=== PATIENT | female | born 1925 | race Caucasian/White ===

== ENCOUNTER 2016-11-15 20:35 | Observation (INO) | payer OTHER ==
[~2016-11-15] VITALS: Ht 165.1 cm; Wt 63.5 kg
[2016-11-15 20:35] VITALS: BP 0/0
[~2016-11-15 20:35] MED LIST: AMIODARONE HCL (50 MG/ ML) 3 ML VIAL IV ONE; ATROPINE SULF 0.5 MG/5ML SYR IV ONE; CALCIUM CHLOR(10%) 100MG/ML 10ML SYRINGE IV ONE; EPINEPHrine HCL 1 MG/10 ML SYRG IV ONE; LEVO75CA; LOVA10TA54; METO25TA62; SODIUM BICARBONATE 8.4% INJ 50ML SYRINGE IV ONE
[2016-11-15] MEDS ORDERED: NOREPINEPHRINE BITARTRATE 250 ML IV ONE (20:40)
[2016-11-15] MEDS ORDERED: NOREPINEPHRINE BITARTRATE 250 ML IV SCH (20:56)
[2016-11-15] MEDS ORDERED: PHENYLEPHRINE HCL 10 MG/ML VL ONE (21:06)
[2016-11-15] MEDS ORDERED: SODIUM BICARBONATE 8.4% INJ 50ML SYRINGE ONE (21:12)
[2016-11-15] MEDS ORDERED: PHENYLEPHRINE INJ 20 MG in SODIUM CHL 0.9% 248 ML IV ONE (21:15)
[2016-11-15] MEDS ORDERED: AMIODARONE HCL 900 MG IV ONE (21:24)
[2016-11-15] MEDS ORDERED: AMIODARONE HCL 900 MG in DEXTROSE 500 ML IV SCH (21:48)
[2016-11-15 22:23] LABS: Albumin 1.9 g/dL (3.4-5.0); BUN/Creatinine Ratio 14.3; Bilirubin, Total 0.3 mg/dL (0.2-1.0); Calcium 9.3 mg/dL (8.5-10.1); Potassium 3.9 mmol/L (3.5-5.1); Total Protein 4.4 g/dL (6.4-8.2)
[2016-11-16] MEDS ORDERED: AMIODARONE HCL 900 MG in DEXTROSE 500 ML IV SCH (03:48)
== END 2016-11-15 21:51 | disposition expired | DRG 298 ==
LOC: EDUNIT# 20:35 → EDBD 20:35 → ER 20:35 → OVERFLOW 20:54 → ER 21:51
PROVIDERS: ADMIT Emergency Medicine; ATTEND Emergency Medicine
DX: I46.9 Cardiac arrest, cause unspecified (principal); Z85.9 Personal history of malignant neoplasm, unspecified
CPT/HCPCS: 36415; 36600; 80053; 82805; 83735; 84484; 94002; 96365; 99291; G0378; J0171; J0282; J0461; J2370; J7050